=== PATIENT | female | born 1985 | race Caucasian/White ===

== ENCOUNTER 2022-01-09 01:47 | Inpatient (IN) ==
[~2022-01-09 01:47] MED LIST: METHYLERGONOVINE 0.2 MG/1 ML AMP IM ONE
[2022-01-09] MEDS ORDERED: BUTORPHANOL 2 MG/ML VIAL IV PRN (02:11)
[2022-01-09] MEDS ORDERED: MEPERIDINE 50 MG/1 ML VIAL IV PRN (02:11)
[2022-01-09] MEDS ORDERED: ONDANSETRON 4 MG/2 ML VIAL IV PRN ×2 (02:11→05:49)
[2022-01-09] MEDS ORDERED: LACTATED RINGERS 250 ML IV PRN (02:13)
[2022-01-09] MEDS ORDERED: ONDANSETRON 4 MG/2 ML VIAL IV ONE (02:13)
[2022-01-09] MEDS ORDERED: NALOXONE 0.4 MG/ML VIAL IV PRN (02:13)
[2022-01-09] MEDS ORDERED: hydrOXYzine HCL 25 MG/1 ML VIAL IM PRN (02:13)
[2022-01-09] MEDS ORDERED: ePHEDrine 50 MG/ML VIAL IV PRN (02:13)
[2022-01-09] MEDS ORDERED: PROMETHAZINE 25 MG/1 ML VIAL IM ONE (02:13)
[2022-01-09] MEDS ORDERED: diphenhydrAMINE 50 MG/1 ML VIAL IV PRN ×2 (02:13)
[2022-01-09] MEDS ORDERED: LIDOCAINE 1% 50 ML VIAL ONE (02:23)
[2022-01-09] MEDS ORDERED: miSOPROStoL 200 MCG TABLET ONE (02:24)
[2022-01-09] MEDS ORDERED: TRANEXAMIC ACID 1,000 MG/10 ML VIAL ONE (02:24)
[2022-01-09] MEDS ORDERED: METHYLERGONOVINE 0.2 MG/1 ML AMP ONE (02:25)
[2022-01-09] MEDS ORDERED: SODIUM CHLORIDE 0.9% 0 ML IV ONE (02:25)
[2022-01-09] MEDS ORDERED: OXYTOCIN/LR 20 UNIT/1,000 ML BAG IV ONE ×2 (02:25→05:49)
[2022-01-09] MEDS ORDERED: CARBOPROST TROMETHAMINE 250 MCG/ML AMP IM ONE (02:25)
[2022-01-09] MEDS ORDERED: OXYTOCIN/LR 30 UNIT/1,000 ML BAG IV ONE (02:28)
[2022-01-09] MEDS ORDERED: fentaNYL 2 MCG/ROPIV 0.2% EPID 100 ML EPIDURAL SCH (02:30)
[2022-01-09] MEDS ORDERED: LACTATED RINGERS 1,000 ML IV SCH ×2 (02:30)
[2022-01-09] MEDS ORDERED: OXYTOCIN/LR 20 UNIT/1,000 ML BAG IV SCH (02:30)
[2022-01-09 02:33] LABS: Basophils # 0.1 10*3/uL (0.0-0.2); Basophils % 0.4 % (0.0-0.8); Eosinophils # 0.1 10*3/uL (0.0-0.87); Eosinophils % 0.4 % (0.00-10.9); Hematocrit 40.1 VOL% (35.7-47.0); Hemoglobin 13.4 GM/DL (12.0-16.0); Immature Granulocytes % 0.7 %; Lymphocytes # 2.6 10*3/uL (1.4-4.0); Lymphocytes % 19.3 % (21.3-54.2); Mean Corpuscular HGB Conc 33.4 GM/DL (32-36); Mean Corpuscular Volume 88.9 FL (87-102); Mean Platelet Volume 10.8 FL (9.6-12.0); Monocytes % 9.4 % (1.7-12.7); Neutrophils % 69.8 % (38.7-73.9); Platelet Count 238 T/CUMM (130-400); Red Blood Count 4.51 MC/CUMM (3.8-5.5); White Blood Count 13.7 T/CUMM (4-12)
[2022-01-09 03:05] LABS: Cord Venous Blood HCO3 22.7 MMOL/L; Cord Venous Blood PO2 40.6
[2022-01-09] MEDS ORDERED: LIDOCAINE 1% 50 ML VIAL MISC INJ ONE (05:44)
[2022-01-09] MEDS ORDERED: LANOLIN 50% CREAM 0.3 OZ TUBE TOP PRN (05:49)
[2022-01-09] MEDS ORDERED: ACETAMINOPHEN 325 MG TABLET PO PRN (05:49)
[2022-01-09] MEDS ORDERED: RHO(D) IMMUNE GLOBULIN 300 MCG SYRINGE IM ONE (05:49)
[2022-01-09] MEDS ORDERED: MEASLES/MUMPS/RUBELLA VACCINE 0.5 ML VIAL SUBCUT ONE (05:49)
[2022-01-09] MEDS ORDERED: HYDROCORTISONE 2.5% RECTAL CREAM 30 GM TUBE TOP PRN (05:49)
[2022-01-09] MEDS ORDERED: BISACODYL 10 MG SUPP RECTAL PRN (05:49)
[2022-01-09] MEDS ORDERED: BENZOCAINE 20%/MENTHOL 0.5% SPRAY 56 GM CAN TOP PRN (05:49)
[2022-01-09] MEDS ORDERED: WITCH HAZEL PADS 100/JAR TOP PRN (05:49)
[2022-01-09] MEDS ORDERED: DIPH/TET/ACEL PERT BOOSTER VACCINE 0.5 ML VIAL IM ONE (05:49)
[2022-01-09] MEDS ORDERED: oxyCODONE/ACETAMINOPHEN 5-325 MG TABLET PO PRN ×2 (05:49)
[2022-01-09] MEDS: DOCUSATE SODIUM 100 MG CAPSULE PO SCH ×2 (08:35→20:30)
[2022-01-09] MEDS: IBUPROFEN 800 MG TABLET PO PRN ×2 (08:35→21:09)
[2022-01-09 11:59] LABS: Hematocrit 29.6 VOL% (35.7-47.0); Hemoglobin 9.9 GM/DL (12.0-16.0)
[2022-01-09] MEDS: FERROUS SULFATE 325 MG TABLET PO SCH (20:30)
[2022-01-10 06:09] LABS: Basophils # 0.1 10*3/uL (0.0-0.2); Basophils % 0.5 % (0.0-0.8); Eosinophils # 0.1 10*3/uL (0.0-0.87); Eosinophils % 0.6 % (0.00-10.9); Hematocrit 25.8 VOL% (35.7-47.0); Hemoglobin 8.4 GM/DL (12.0-16.0); Immature Granulocytes Absolute 0.11 #; Lymphocytes # 1.8 10*3/uL (1.4-4.0); Lymphocytes % 16.4 % (21.3-54.2); Mean Corpuscular HGB Conc 32.6 GM/DL (32-36); Mean Corpuscular Volume 92.8 FL (87-102); Mean Platelet Volume 10.9 FL (9.6-12.0); Monocytes % 8.1 % (1.7-12.7); Neutrophils % 73.4 % (38.7-73.9); Platelet Count 155 T/CUMM (130-400); Red Blood Count 2.78 MC/CUMM (3.8-5.5); Red Cell Distribution Width 13.2 % (9.3-17.3)
[2022-01-10] MEDS: FERROUS SULFATE 325 MG TABLET PO SCH ×2 (09:15→21:03)
[2022-01-10] MEDS: DOCUSATE SODIUM 100 MG CAPSULE PO SCH ×2 (09:16→21:03)
[2022-01-10] MEDS: IBUPROFEN 800 MG TABLET PO PRN ×2 (10:57→23:14)
[2022-01-11] MEDS: IBUPROFEN 800 MG TABLET PO PRN (07:33)
[2022-01-11] MEDS: DOCUSATE SODIUM 100 MG CAPSULE PO SCH (08:25)
[2022-01-11] MEDS: FERROUS SULFATE 325 MG TABLET PO SCH (08:25)
[2022-01-11 11:33] VITALS: BP 129/77
[2022-01-11] MEDS ORDERED: DIPH/TET/ACEL PERT BOOSTER VACCINE 0.5 ML VIAL IM ONE (13:08)
== END 2022-01-11 13:20 | disposition home or self-care (01) | DRG 807 ==
LOC: N.LD 01:47 → N.LDOUT 01:47 → N.LD 01:52 → N.OB 13:25
PROVIDERS: ADMIT Obstetrics & Gynecology; ATTEND Obstetrics & Gynecology